=== PATIENT | female | born 1990 | race Caucasian/White ===

== ENCOUNTER 2016-11-21 13:05 | Emergency (ER) | payer OTHER ==
[~2016-11-21] VITALS: Ht 180.3 cm; Wt 115.7 kg
--- NOTE | ~2016-11-21 | CR127 ---
[facility] A Service of [facility] RADIOLOGY TEXT RESULTS PATIENT: LIZET PEREZ LOCATION: [facility]FT[facility] : 88 UNIT #: [id number] AGE: [address]: Maria R Hernandez SEX: F ORDER DR: [id number] [facility] [address] [place], [place] [address] [id number] MR#: [id number] #: [id number] NAME: LIZET PEREZ : 1990 SEX: F STUDY DATE/TIME: UNIT: [facility]FT[facility] ROOM: STUDY DESCRIPTION: CR Foot Complete Min 3 View Rt Attending Physician: Maria R Hernandez P.A.-C. Ordering Physician: Maria R Hernandez P.A.-C. Primary Care Physician: Giulia Patel M.D. MEDICAL IMAGING REPORT This report is preliminary unless electronic signature is present EXAM Right 3 views 11/21/2016 1341 hours HISTORY 26-year-old complaining of right foot pain since 2016. Patient states fractured her foot previously in 2014 with worsening pain every month since then. No recent injury. COMPARISON No prior for comparison. FINDINGS AP, lateral and oblique views demonstrate overall normal bone density. There is no fracture, dislocation or periosteal reaction. IMPRESSION Negative right foot. Dictated by... Cathi Ortiz M.D. THIS IS AN ELECTRONICALLY VERIFIED REPORT Cathi Ortiz M.D. at 11/22/2016 9:31 AM KATHY/feng TD: 11/21/2016 21:17 JOB #: [id number] MEDICAL IMAGING REPORT Page 1 of 1 COPY
[~2016-11-21 13:05] MED LIST: MACROBID100 MG DOB; PHENERGAN PO; PYRIDIUM PO; ZANTAC PO
== END 2016-11-21 14:31 | disposition home or self-care (01) ==
LOC: CED 13:05 → CFTX 13:05
DX: M79.671 Pain in right foot (principal); F41.9 Anxiety disorder, unspecified; F17.210 Nicotine dependence, cigarettes, uncomplicated
CPT/HCPCS: 29405; 73630; 96372; 99283; J1885